=== PATIENT | male | born 1990 | race Caucasian/White ===

== ENCOUNTER 2017-09-27 11:35 | Emergency (ER) | payer BC, OTHER ==
--- NOTE | 2017-09-27 13:30 | ER Document Report ---
ED General - General Chief Complaint: Laceration Stated Complaint: LACERATION TO LEFT INDEX FINGER Time Seen by Provider: 09/27/17 13:29 Mode of Arrival: Ambulatory Information source: Patient Notes: Patient is a 27-year-old male who presents with an index finger laceration to his left hand that occurred around 11:00 today. He states he was cutting off a zip tie from a baseball bat with his pocket knife when it slipped and cut his index finger. He was seen in urgent care and sent here concerning for a tendon laceration. He is unsure of last tetanus shot. Bleeding is controlled with pressure dressing at this time. TRAVEL OUTSIDE OF THE [place] IN LAST 30 DAYS: No - Related Data Allergies/Adverse Reactions: No Known Allergies Allergy (Verified 09/27/17 11:37) Past Medical History - General Information source: Patient - Social History Smoking Status: Unknown if Ever Smoked Frequency of alcohol use: None Drug Abuse: None Family History: Reviewed & Not Pertinent Patient has suicidal ideation: No Patient has homicidal ideation: No Renal/ Medical History: Denies: Hx Peritoneal Dialysis - Immunizations Hx Diphtheria, Pertussis, Tetanus Vaccination: Yes Review of Systems - Review of Systems Constitutional: No symptoms reported EENT: No symptoms reported Cardiovascular: No symptoms reported Respiratory: No symptoms reported Gastrointestinal: No symptoms reported Genitourinary: No symptoms reported Male Genitourinary: No symptoms reported Musculoskeletal: No symptoms reported Skin: See HPI Hematologic/Lymphatic: No symptoms reported Neurological/Psychological: No symptoms reported Physical Exam - Vital signs Vitals: Temp Pulse Resp BP Pulse Ox 97.9 F 62 16 123/73 98 09/27/17 11:42 09/27/17 11:42 09/27/17 11:42 09/27/17 11:42 09/27/17 11:42 - Notes Notes: PHYSICAL EXAM: CONSTITUTIONAL: Alert and oriented, well-appearing and in no acute distress. HENT: Normocephalic, atraumatic. Trachea midline. Uvula midline. Moist mucous membranes. EYES: Pupils equal round and reactive to light, EOM intact. Sclera anicteric, conjunctiva are normal. No entrapment. NECK: supple without lymphadenopathy. No midline tenderness or paraspinous muscle spasms. No step-offs or deformities. ROM intact. HEART: Regular rate and rhythm without murmurs. LUNGS: CTAB and equal. No wheezes, rales or rhonchi. EXTREMITIES: 1.3 cm laceration overlying PIP joint of left index finger on dorsal surface. Patient able to passively and actively fully extend finger at PIP and DIP joint, full active flexion at PIP joint limited secondary to pain. Wound explored after anesthetic with lidocaine and visualization of tendon concerning for partial tendon laceration. NEURO: Cranial nerves grossly intact. Normal sensory/motor exams. PSYCH: Normal mood, normal affect. SKIN: Warm and dry. Normal turgor. No rashes or lesions noted. Course - Re-evaluation Re-evalutation: 09/27/17 13:30 Patient seen and examined. 1.3 cm laceration overlying PIP joint of left index finger on dorsal surface. Patient able to passively and actively fully extend finger at PIP and DIP joint, full active flexion at PIP joint limited secondary to pain. Wound explored after anesthetic with lidocaine and visualization of tendon concerning for partial tendon laceration. Patient is right hand dominant. 09/27/17 16:20 Overlying laceration repaired, see procedure note. Splint applied to finger, tetanus updated, given dose of IM abx here and will send home with same. Instructed patient to follow-up with orthopedics tomorrow concerning tendon laceration and discussed importance of immediate follow-up. Patient voiced understanding. Discussed risk of delay in treatment including loss of ROM. At this time, will discharge with return precautions and follow-up recommendations. Verbal discharge instructions given at the bedside and opportunity for questions given. Medication warnings reviewed. Patient is in agreement with this plan and has verbalized understanding of return precautions and the need for primary care follow-up in the next 24-72 hours. - Vital Signs Vital signs: Temp Pulse Resp BP Pulse Ox 97.9 F 62 16 123/73 98 09/27/17 11:42 09/27/17 11:42 09/27/17 11:42 09/27/17 11:42 09/27/17 11:42 Procedures - Laceration/Wound Repair Left Dorsal 2nd digit Wound length (cm): 1.3 Wound's Depth, Shape: Superficial Laceration pre-procedure: Sterile PPE donned, Sterile drapes applied, Shur- Clens applied Anesthetic type: 1% Lidocaine - digital block Volume Anesthetic (mLs): 5 Wound explored: Clean - Concern for extensor tendon laceration over PIP joint Irrigated w/ Saline (mLs): 30 Wound Debrided: Minimal Wound Repaired With: Sutures Suture Size/Type: 4:0 Number of Sutures: 3 Layer Closure?: No Post-procedure wound care: Sterile dressing applied, Splint applied Post-procedure NV exam normal: Yes Complications: Yes - concern for extensor tendon laceration involvement over PIP joint Notes: 09/27/17 16:16 Patient able to passively extend index finger fully, limited in flexion passively. When wound was explored, visualization of tendon with possible laceration. Patient is right hand dominant. Hands back picture: 1 - 1.3 cm Discharge - Discharge Clinical Impression: Laceration of index finger with tendon involvement Qualifiers: Encounter type: initial encounter Laterality: left Qualified Code(s): S61.211A - Laceration without foreign body of left index finger without damage to nail, initial encounter; S66.922A - Laceration of unspecified muscle, fascia and tendon at wrist and hand level, left hand, initial encounter; S66.922A - Laceration of unspecified muscle, fascia and tendon at wrist and hand level, left hand, initial encounter Condition: Stable Disposition: HOME, SELF-CARE Additional Instructions: Please follow-up with orthopedics as soon as possible (preferably tomorrow) for further evaluation and management of your EXTENSOR TENDON LACERATION TO LEFT INDEX FINGER. LACERATION CARE: Your laceration has been sutured to keep the skin edges aligned during healing. The time of suture removal depends on the nature and location of your cut. Please follow the care instructions the doctor has outlined for you and return for further care, according to the schedule you've been given. Keep the wound and dressing clean. Unless you were told otherwise, you may shower daily, blotting the wound dry with a clean, unused towel. At other times, If the dressing gets wet or blood soaked, remove it and blot the wound dry, then reapply a new dressing. Unless you were instructed otherwise, dressings should be changed at least daily. If any signs of infection occur (swelling, redness, drainage, increasing tenderness, red streaks, tender lumps in the armpit or groin above the laceration, or fever), see the doctor immediately. SOAP CLEANSING: Gently wash the wound daily using a mild soap (like Ivory, Phisoderm, Neutrogena). Use warm water, rubbing gently until all debris, ooze, and crusting have been washed from the wound. Allow to dry briefly (about 10 minutes) after cleaning. Repeat this cleansing at least three times a day for the first two days and then once or twice a day. ANTIBIOTIC OINTMENT PROTECTION: Your wounds are such that dressing them is not practical or optional. After cleansing, you should apply a thin coating of antibiotic ointment ( Bacitracin, not Neosporin) to the wounds at least three times daily. This lessens infection risk, and may decrease the amount of scarring. Use a q-tip or dull butter knife, not your finger, to apply this ointment. Any debris or ooze which builds up in the ointment should be gently rubbed off with a sterile gauze pad. Harder crusting may need to be gently scrubbed off with a clean wash cloth with soap and warm water, perhaps applying a warm, wet wash cloth to the wound for ten minutes first. Development of redness, severe itching, or blistering may mean allergy to the ointment. See the doctor. TETANUS IMMUNIZATION GIVEN: You have been given an immunization against tetanus. Please record this in your records. In general, a booster is needed only once every 10 years. The tetanus shot protects against tetanus or "lockjaw," which is a complication of certain wound infections (the tetanus shot cannot protect against the actual infection). The immunization site may become warm and red due to local reaction. If this occurs, apply warm compresses and take aspirin or ibuprofen to reduce inflammation and discomfort. Return for evaluation if the reaction becomes severe. PROPHYLACTIC ANTIBIOTIC: The antibiotics which have been prescribed are designed to decrease the risk of infection. Only certain types of wounds benefit from this -- the typical cut, scrape, or burn DOES NOT require antibiotics. Of course, infection can still occur despite the use of prophylactic antibiotics. Your wound will heal with less chance of an infectious complication if you take the medication as directed. The most important dose is the FIRST dose, so don't delay filling the prescription! ORAL NARCOTIC MEDICATION: You have been given a prescription for pain control. This medication is a narcotic. It's best taken with food, as nausea can result if taken on an empty stomach. Don't operate machinery or drive within six hours of taking this medication. Do not combine this medicine with alcohol, or with any medication which can cause sedation (such as cold tablets or sleeping pills) unless you get permission from the physician. Narcotics tend to cause constipation. If possible, drink plenty of fluids and eat a diet high in fiber and fruits. FOLLOW-UP CARE: Please follow-up with orthopedics as soon as possible (preferably tomorrow ) for further evaluation and management of your EXTENSOR TENDON LACERATION TO LEFT INDEX FINGER. To facilitate a timely removal of your sutures, you may return to the Emergency Department at [facility]. You do not need to call for an appointment, but the best time to come in for suture removal is early in the morning. If you have been referred to another physician for follow-up care, call that physicians office for an appointment as you were instructed. If you experience a significant change in your laceration, or if you are concerned there may be an infection (swelling, redness, drainage, increasing tenderness, red streaks, tender lumps in the armpit or groin above the laceration, or fever) , return to the Emergency Department immediately re-evaluation. Prescriptions: Cefuroxime Axetil [Ceftin 500 mg Tablet] 1 tab PO BID #20 tablet Hydrocodone/Acetaminophen [Peel 5-325 mg Tablet] 1 tab PO Q6H PRN #10 tablet PRN Reason: Forms: Return to Work Referrals: DAT ALEGRIA MD [ACTIVE STAFF] - Follow up tomorrow
[2017-09-27] MEDS ORDERED: LIDOCAINE 1% INJ-PF (10 MG/ML) 30 ML SDV INJ ONE (13:49)
[2017-09-27] MEDS ORDERED: DIPH/PERTUSS(ACELL)/TETANUS VAC/PF 0.5 ML SYR (>=10YO) IM ONE (13:50)
[2017-09-27] MEDS ORDERED: ONDANSETRON 4 MG TAB.RAPDIS ONE (15:54)
[2017-09-27] MEDS ORDERED: ONDANSETRON 4 MG TAB.RAPDIS PO ONE (16:03)
[2017-09-27] MEDS ORDERED: CEFTRIAXONE INJ 1000 MG VIAL IM ONE (16:07)
[2017-09-27] MEDS ORDERED: LIDOCAINE 1% INJ-PF (10 MG/ML) 30 ML SDV INFIL ONE (16:07)
[2017-09-27 17:35] VITALS: BP 120/67
== END 2017-09-27 17:25 | disposition home or self-care (01) ==
LOC: ER 11:35
PROC: 0HQGXZZ Repair Left Hand Skin, External Approach (ICD-10-PCS; principal; 2017-09-27)
DX: S61.211A Laceration without foreign body of left index finger without damage to nail, initial encounter (principal); W26.0XXA Contact with knife, initial encounter
CPT/HCPCS: 99283; 96372; 90471; 90715; 12001; S0119; J3490; J0696

== ENCOUNTER 2017-10-02 05:14 | Day surgery (SDC) | payer OTHER ==
[2017-09-30 10:55] LABS: APPEARANCE,URINE CLEAR; BILIRUBIN,URINE NEGATIVE (NEGATIVE); COLOR,URINE YELLOW; GLUCOSE, URINE NEGATIVE (NEGATIVE); KETONES,URINE NEGATIVE (NEGATIVE); LEUKOCYTE ESTERASE,URINE NEGATIVE (NEGATIVE); NITRITE,URINE NEGATIVE (NEGATIVE); PROTEIN,URINE NEGATIVE (NEGATIVE); UROBILINOGEN,URINE NEGATIVE mg/dL (<2.0)
[2017-09-30 11:08] LABS: ABSOLUTE EOSINOPHILS # (AUTO) 0.1 10^3/uL (0.0-0.6); ABSOLUTE LYMPHOCYTES (AUTO) 1.8 10^3/uL (0.5-4.7); ABSOLUTE MONOCYTES (AUTO) 0.6 10^3/uL (0.1-1.4); ABSOLUTE NEUT (AUTO) 2.2 10^3/uL (1.7-8.2); BASOPHILS % (AUTO) 0.7 % (0-2); EOSINOPHILS % (AUTO) 1.2 % (0-6); HEMATOCRIT 40.2 % (37.9-51.0); HEMOGLOBIN 13.9 g/dL (13.5-17.0); LYMPHOCYTES % (AUTO) 39.1 % (13-45); MEAN CORPUSCULAR HEMOGLOBIN 30.7 pg (27.0-33.4); MEAN CORPUSCULAR HGB CONC 34.5 g/dL (32.0-36.0); MEAN CORPUSCULAR VOLUME 89 fl (80-97); MONOCYTES % (AUTO) 13.1 % (3-13); PLATELET COUNT 229 10^3/uL (150-450); RED BLOOD COUNT 4.52 10^6/uL (4.35-5.55); RED CELL DISTRIBUTION WIDTH 12.9 % (11.5-14.0); SEGMENTED NEUTROPHILS % (AUTO) 45.9 % (42-78); TOTAL CELLS COUNTED % (AUTO) 100 %; WHITE BLOOD COUNT 4.7 10^3/uL (4.0-10.5)
[2017-09-30 11:33] LABS: ANION GAP 11 (5-19); BLOOD UREA NITROGEN 14 mg/dL (7-20); CALCIUM 9.2 mg/dL (8.4-10.2); CARBON DIOXIDE 29 mmol/L (22-30); CHLORIDE 102 mmol/L (98-107); GLUCOSE 90 mg/dL (75-110); POTASSIUM 4.8 mmol/L (3.6-5.0); SODIUM 141.7 mmol/L (137-145)
[~2017-10-02 05:14] MED LIST: CEFAZOLIN 2 GM/D5W RTU 2 GM/50 ML RTUPB IV PRN; CEFAZOLIN SODIUM 2 GM in DEXTROSE 5%-WATER 100 ML IV PRN; LACTATED RINGERS 1000 ML IV PRN; LIDOCAINE 0.5% INJ-PF (5 MG/ML) 50 ML SDV SUBCUT PRN
[2017-10-02] MEDS ORDERED: FENTANYL CITRATE INJ/PF 100 MCG/2 ML AMPUL ONE (07:07)
[2017-10-02] MEDS ORDERED: MIDAZOLAM 2 MG/2 ML INJ ONE (07:07)
[2017-10-02] MEDS ORDERED: KETAMINE HCL INJ 500 MG/10 ML VIAL ONE (07:08)
[2017-10-02] MEDS ORDERED: PROPOFOL INJ 200 MG/20 ML VIAL IV ONE (07:08)
[2017-10-02] MEDS ORDERED: BUPIVACAINE HCL 0.5 % INJ/PF 30 ML SDV ONE (07:09)
[2017-10-02] MEDS ORDERED: LIDOCAINE 1% INJ-PF (10 MG/ML) 30 ML SDV ONE (07:09)
[2017-10-02] MEDS ORDERED: MORPHINE SULFATE 10 MG/ML INJ IV PRN ×2 (07:43→08:12)
[2017-10-02] MEDS ORDERED: FENTANYL CITRATE INJ/PF 100 MCG/2 ML AMPUL IV PRN ×3 (07:43)
[2017-10-02] MEDS ORDERED: MEPERIDINE HCL/PF INJ 25 MG/1 ML DISP.SYRIN IV PRN (07:43)
[2017-10-02] MEDS ORDERED: DIPHENHYDRAMINE HCL 50 MG/ML VIAL IV PRN (07:43)
[2017-10-02] MEDS ORDERED: OXYCODONE-ACETAMINOPHEN 5-325 MG TABLET PO PRN ×3 (07:43→08:12)
[2017-10-02] MEDS ORDERED: PROMETHAZINE HCL INJ 25 MG/1 ML VIAL IV PRN ×2 (07:43)
[2017-10-02] MEDS ORDERED: ONDANSETRON HCL INJ/PF 4 MG/2 ML SDV IV PRN (08:12)
--- NOTE | 2017-10-02 08:12 | Discharge Summary ---
Discharge Summary (SDC) - Discharge Final Diagnosis: Index finger extensor tendon laceration Date of Surgery: 10/02/17 Discharge Date: 10/02/17 Condition: Good Treatment or Instructions: Schedule Follow Up w/ Dr. hTomas Sykes @ [facility] to be seen in 10-14 days or as scheduled [place]: [place]: [place]: Ice and elevate Keep splint clean/dry/intact. If your fingers become numb please unwrap the Wolfgang wrap but leave the splint in place, if the sensation does not return within 30 minutes please return to the emergency department. Please use ibuprofen (Motrin or Advil) 600-800 mg every 8 hours as needed for pain or fever. You may also use acetaminophen (Tylenol) 1000 mg every 4-6 hours as needed for pain or fever. Please be aware that many medications contain acetaminophen, do not exceed a total of 1000 mg of acetaminophen every 6 hours. If ibuprofen and acetaminophen are not sufficient for your pain you may take the Percocet/[place]. Please be aware that the Percocet/[place] does contain Tylenol. Stool softener of choice when on pain medication. Prescriptions: Oxycodone HCl/Acetaminophen [Percocet 5-325 mg Tablet] 1 - 2 tab PO ASDIR PRN # 35 tablet PRN Reason: Discharge Diet: As Tolerated Discharge Activity: No Lifting Over 10 Pounds, No Lifting/Push/Pulling Report the Following to Your Physician Immediately: Fever over 101 Degrees, Unusual Bleeding, Redness, Swelling, Warmth, Increased Soreness
--- NOTE | 2017-10-02 08:14 | Operative Report ---
Operative Report DATE OF SURGERY: 10/02/17 PREOPERATIVE DIAGNOSIS: Left Index Extensor Tendon Laceration POSTOPERATIVE DIAGNOSIS: Zone III Extensor Tendon Laceration Left Index OPERATION: Repair extensor tendon laceration left index finger zone III with PIP joint percutaneous pinning SURGEON: PATRICIA LUIS ANESTHESIA: LMAC COMPLICATIONS: None ESTIMATED BLOOD LOSS: Minimal PROCEDURE: Indication for above procedure: 27-year-old male who inadvertently sustained a laceration to his left index finger. Patient was seen at the emergency room where he was diagnosed with possible extensor tendon laceration. Upon follow-up in my office we discussed treatment options including operative versus nonoperative intervention. Given amount of patient's extensor lag and location I recommended operative treatment. Risks and benefits were explained patient verbalized understanding consented for the procedure. Procedure In Detail: Patient was seen and evaluated in the preoperative holding area. The LEFT upper extremity was initialized and marked. Patient received 2g of Ancef IV for bacterial prophylaxis. Patient was taken back to the operative room where transferred to the operative table. Once they were adequately anesthetized a nonsterile tourniquet was placed on the upper extremity. A surgical team debriefing was performed ensuring all instrumentation was available, the surgical procedure was discussed with possible concerns reviewed. A digital block was performed utilizing 10 mL 50:50 mixture of 0.5% Marcaine and 1% lidocaine without epinephrine. The upper extremity was prepped with chlorhexidine and alcohol and draped in a sterile fashion. A timeout was done identifying correct patient, procedure and extremity everyone in attendance agree with this and verbalized no concerns. The extremity was exsanguinated the tourniquet was inflated to 200 mmHg. Patient's previous laceration site was opened and extended proximally and distally. The area was copiously irrigated with normal saline. Demonstrated greater than 75% central slip laceration. The extensor tendon laceration zone 3 was reapproximated with a running Silverskiold horizontal mattress 4-0 FiberWire suture. Once the tendon was adequately reapproximated I then placed a 0.045 K wire obliquely across the PIP joint maintaining full extension. The wound was once again irrigated with normal saline. Skin incision closed with interrupted 4-0 nylon suture. Any peripheral veins were coagulated with bipolar cautery. Wound was dressed with Xeroform and a soft dressing. Needle was noted to be missing postoperative. Radiographs were performed confirming no evidence of foreign body. Patient was then awoken from anesthesia. Transferred from the operating room table to the operating room stretcher. There was no intraoperative complications patient tolerated procedure well stable to PACU. Postoperative plan: Patient will follow-up the office in 2 weeks for suture removal. Will begin occupational therapy focusing on MP and DIP joint range of motion.
--- NOTE | 2017-10-02 09:09 | RADIOLOGY REPORT (SQ) ---
EXAM DESCRIPTION: FINGER LEFT COMPLETED DATE/TIME: 10/02/2017 8:46 am REASON FOR STUDY: LEFT FINGER PINNING ASST WITH FLUORO IN OR S66.321A LACERAT EXTN MUSC/FASC/TEND L IDX FNGR AT WRS/HND L COMPARISON: None. NUMBER OF VIEWS: Three views. TECHNIQUE: AP, lateral, and oblique images acquired of the left 2nd PIP joint LIMITATIONS: None. FINDINGS: MINERALIZATION: Normal. BONES: No acute fracture or dislocation. No worrisome bone lesions. SOFT TISSUES: Soft tissue defect noted dorsal to base of 2nd middle phalanx OTHER: Metallic pin overlying the left 2nd PIP joint. IMPRESSION: Status post pinning left 2nd PIP joint. TECHNICAL DOCUMENTATION: JOB ID: [id number] [id number] 2010 [employer] All Rights Reserved Reading location - IP/workstation name: [email or web address]
[2017-10-02 10:19] VITALS: BP 137/94
--- NOTE | 2017-10-02 13:01 | RADIOLOGY REPORT (SQ) ---
EXAM DESCRIPTION: NO CHG FLUORO COMPLETE DATE/TIME: 10/02/2017 8:46 am REASON FOR STUDY: LEFT FINGER PINNING ASST WITH FLUORO IN OR S66.321A LACERAT EXTN MUSC/FASC/TEND L IDX FNGR AT WRS/HND L FINDINGS: Please see combined report for performance of procedure and radiologic supervision and int erpretation. IMPRESSION: Please see combined report for performance of procedure and radiologic supervision and i nterpretation. Reading location - IP/workstation name: [email or web address]
== END 2017-10-02 09:50 | disposition home or self-care (01) ==
LOC: OROUT 05:14
PROVIDERS: ATTEND Orthopaedic Surgery
PROC: 0RH Upper Joints, Insertion (ICD-10-PCS; 2017-10-02)
PROC: 0LQ80ZZ Repair Left Hand Tendon, Open Approach (ICD-10-PCS; principal; 2017-10-02 07:15)
DX: S66.321D Laceration of extensor muscle, fascia and tendon of left index finger at wrist and hand level, subsequent encounter (principal); W26.0XXD Contact with knife, subsequent encounter; M79.645 Pain in left finger(s); Z79.899 Other long term (current) drug therapy
CPT/HCPCS: 36415; 85025; 80048; 81001; 73140; 26418; 26535; C1769; J2250; J3490 ×3; J3010; J2704; J0690; 01810